=== PATIENT | male | born 1960 | race Two or more races ===

== ENCOUNTER 2021-04-11 18:11 | Emergency (ER) | payer SELFPAY ==
[~2021-04-11] VITALS: Ht 170.2 cm; Wt 88.5 kg
[~2021-04-11 18:11] MED LIST: DICYCLOMINE HCL10 MG; LEXAPRO10 MG PO; NORCO 10-325 T1 EACH; PYRIDIUM200 MG PO; SERTRALINE HCL100 MG; VESICARE5 MG PO; XANAX0.25 MG PO
[2021-04-11] MEDS ORDERED: FAMOTIDINE40 MG PO (20:51)
[2021-04-11] MEDS ORDERED: ALPRAZOLAM0.5 MG PO (20:51)
[2021-04-11 21:00] VITALS: BP 168/80
== END 2021-04-11 21:00 | disposition home or self-care (01) ==
LOC: FSED 18:32
DX: R07.89 Other chest pain (principal); R06.02 Shortness of breath; K21.9 Gastro-esophageal reflux disease without esophagitis; F41.9 Anxiety disorder, unspecified; R13.10 Dysphagia, unspecified; Z65.8 Other specified problems related to psychosocial circumstances
CPT/HCPCS: 71046; 80053; 81003; 82553; 83880; 84484; 85025; 85379; 93005; 99284

== ENCOUNTER 2025-01-20 18:08 | Emergency (ER) | payer OTHER ==
[~2025-01-20] VITALS: Ht 175.3 cm; Wt 84.1 kg
[~2025-01-20 18:08] MED LIST changes: +ALPRAZOLAM0.5 MG PO; +FAMOTIDINE40 MG PO
[2025-01-20 18:15] VITALS: PULSE 98; RESP 18; TEMP 98.1
[2025-01-20] MEDS ORDERED: FLOMAX0.4 MG PO (18:31)
[2025-01-20] MEDS ORDERED: EZETIMIBE10 MG (18:31)
[2025-01-20] MEDS ORDERED: AMLODIPINE BESY10 MG PO (18:31)
[2025-01-20] MEDS ORDERED: LEVOTHYROXINE50 MCG PO (18:31)
[2025-01-20] MEDS ORDERED: VISCOUS LIDOCAINE (18:31)
[2025-01-20] MEDS ORDERED: FINASTERIDE5 MG PO (18:31)
[2025-01-20] MEDS ORDERED: [UNRECOGNIZED DRUG - OTHER] (18:31)
[2025-01-20] MEDS ORDERED: ATORVASTATIN CA20 MG PO (18:31)
[2025-01-20] MEDS ORDERED: METFORMIN HCL500 M2 PO (18:31)
[2025-01-20] MEDS ORDERED: LOSARTAN POTASS25 MG PO (18:31)
[2025-01-20] MEDS ORDERED: HYDROCHLOROTHIA25 MG PO (18:31)
[2025-01-20] MEDS ORDERED: PREPARATION H C26 GM (18:31)
[2025-01-20] MEDS ORDERED: HYGROTON25 MG PO (18:31)
[2025-01-20] MEDS ORDERED: PROCTOCORT28.4 GM TOP (20:24)
[2025-01-20] MEDS ORDERED: BACTRIM DS TAB1 EACH PO (20:33)
[2025-01-20 20:54] VITALS: BP 156/85; PULSE 90; RESP 20; TEMP 98.1; O2SAT 97
== END 2025-01-20 20:58 | disposition home or self-care (01) ==
LOC: FSED 18:17
DX: K62.89 Other specified diseases of anus and rectum (principal); K64.9 Unspecified hemorrhoids; N39.0 Urinary tract infection, site not specified; I10 Essential (primary) hypertension; E78.5 Hyperlipidemia, unspecified; E03.9 Hypothyroidism, unspecified; K21.9 Gastro-esophageal reflux disease without esophagitis; F41.9 Anxiety disorder, unspecified; Z87.442 Personal history of urinary calculi
CPT/HCPCS: 81003; 87086; 99283